=== PATIENT | male | born 1970 | race African-American/Black ===

== ENCOUNTER 2017-08-31 10:04 | Emergency (ER) | payer OTHER, SELFPAY ==
[2017-08-31] MEDS ORDERED: Ketorolac Tromethamine 60 MG/2 ML VIAL ONE (10:20)
== END 2017-08-31 10:30 | disposition home or self-care (01) ==
LOC: BURERS 10:04
DX: M54.2 Cervicalgia (principal); V89.2XXA Person injured in unspecified motor-vehicle accident, traffic, initial encounter
CPT/HCPCS: 96372; J1885

== ENCOUNTER 2017-09-04 10:48 | Emergency (ER) | payer OTHER ==
--- NOTE | 2017-09-04 12:40 | RAD ---
CERVICAL SPINE 3 VIEWS: Date: 09/04/17 There is very slight disc space narrowing at C5-C6 and C6-C7. Small anterior osteophytes are prominen t in these levels as well. No fracture or dislocation appreciated. A small calcific density near the tip of the C7 spinous process appears to be calcification in the ligament of nuchae. There is loss of the normal cervical lordosis, which is probably due to muscle spasm. The C1 to dens distance is norm al and the soft tissues are normal in thickness. 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 IMPRESSION: 1. Degenerative changes noted, primarily in the lower cervical spine. 2. Loss of normal cervical lordosis. POS: HOME
--- NOTE | 2017-09-04 12:42 | RAD ---
THORACIC SPINE 1 VIEW: Date: 09/04/17 Single lateral view was done to better demonstrate the upper thoracic and lower cervical spine. No fr acture was appreciated. A rogers of calcification near the tip of the spinous process is somewhat roun ded and appears to be in the ligament of nuchae. IMPRESSION: No acute findings. If suspicion of significant cervical damage is present, a CT would be needed to f urther investigate the area. Currently, there are no findings of concern on the plain radiographs. POS: HOME
== END 2017-09-04 11:53 | disposition home or self-care (01) ==
LOC: BURERS 10:48
DX: S16.1XXA Strain of muscle, fascia and tendon at neck level, initial encounter (principal); I10 Essential (primary) hypertension; V43.92XA Unspecified car occupant injured in collision with other type car in traffic accident, initial encounter
CPT/HCPCS: 72020; 72040

== ENCOUNTER 2018-01-10 14:49 | Emergency (ER) | payer OTHER | END 2018-01-10 15:41 | disposition home or self-care (01) | LOC: BURERS 14:49 | DX: K59.00 Constipation, unspecified (principal) | CPT/HCPCS: 82274; 99283 ==

== ENCOUNTER 2020-05-07 15:02 | Outpatient (CLI) | payer OTHER ==
--- NOTE | 2020-05-07 16:48 | RAD ---
THORACIC SPINE: 05/07/20 AP and lateral views are compared with a 11/04/10 study. No fracture, disc space narrowing or dislocation was seen. No adverse change was seen in the spine ov er time. The disc spaces seem normal in height. IMPRESSION: No acute findings. POS: HOME
--- NOTE | 2020-05-07 17:13 | RAD ---
LUMBAR SPINE THREE VIEWS: 05/07/20 Comparison is made with the 11/04/10 study. No fracture, disc space narrowing or acute bony change was seen. No adverse change since the prior ex am. The SI joints are symmetrical in appearance. A small cyst in the right femoral neck is of no real concern. IMPRESSION: No acute findings. POS: HOME
== END 2020-05-07 15:03 | disposition home or self-care (01) ==
LOC: BURRAD 15:02
PROVIDERS: ATTEND Family Medicine
DX: M54.5 Low back pain (principal); M54.6 Pain in thoracic spine
CPT/HCPCS: 72070; 72100

== ENCOUNTER 2021-10-11 12:27 | Emergency (ER) | payer SELFPAY ==
[2021-10-11] MEDS ORDERED: Morphine 4 MG/ML VIAL ONE (13:44)
[2021-10-11] MEDS ORDERED: Ketorolac Tromethamine 30 MG/ML VIAL ONE (13:44)
[2021-10-11] MEDS ORDERED: Dexamethasone 10 MG/ML VIAL ONE (13:44)
== END 2021-10-11 14:09 | disposition home or self-care (01) ==
LOC: BURERS 12:27
DX: M54.50 Low back pain, unspecified (principal); G89.29 Other chronic pain; I10 Essential (primary) hypertension
CPT/HCPCS: 96372; 99283; J1100; J1885; J2270

== ENCOUNTER 2022-05-09 12:52 | Emergency (ER) | payer OTHER, SELFPAY ==
[2022-05-09] MEDS ORDERED: Dexamethasone 4 mg/ml Vial ONE (13:07)
[2022-05-09] MEDS ORDERED: Dexamethasone 10 MG/ML VIAL ONE (13:07)
[2022-05-09] MEDS ORDERED: Ketorolac Tromethamine 60 MG/2 ML VIAL ONE (13:07)
== END 2022-05-09 13:17 | disposition home or self-care (01) ==
LOC: BURERS 12:52
DX: S39.012A Strain of muscle, fascia and tendon of lower back, initial encounter (principal); I10 Essential (primary) hypertension; X58.XXXA Exposure to other specified factors, initial encounter
CPT/HCPCS: 96372; 99283; J1100; J1885

== ENCOUNTER 2024-06-23 23:19 | Emergency (ER) | payer OTHER, SELFPAY ==
[2024-06-23] MEDS ORDERED: Ketorolac Tromethamine 60 MG/2 ML VIAL ONE (23:34)
== END 2024-06-23 23:54 | disposition home or self-care (01) ==
LOC: BURERS 23:19
DX: M54.50 Low back pain, unspecified (principal); I10 Essential (primary) hypertension; X50.0XXA Overexertion from strenuous movement or load, initial encounter; Y93.F2 Activity, caregiving, lifting
CPT/HCPCS: 96372; 99283; J1885